=== PATIENT | female | born 1970 | race Caucasian/White ===

== ENCOUNTER 2016-11-26 05:50 | Emergency (ER) | payer BC, OTHER ==
[~2016-11-26] VITALS: Ht 157.5 cm; Wt 79.1 kg
[~2016-11-26 05:50] MED LIST: ZFRODT4 SL
[2016-11-26 05:52] VITALS: TEMP 36.7; Ht 157.5 cm; Wt 79.1 kg
[2016-11-26] MEDS ORDERED: CITA20TA4 PO (06:36)
[2016-11-26] MEDS ORDERED: LEVO25TA5 PO (06:36)
[2016-11-26] MEDS ORDERED: MECLIZINE HCL 25 MG TAB PO STA (07:05)
[2016-11-26 07:34] LABS: BASO % 0.1 %; BASO ABS # 0.01 K/uL (0-0.2); COMPLETE YES; EOS % 1.4 %; HEMATOCRIT 47.1 % (37-47); IG% 0.1 %; LYMPH % 27.6 %; LYMPH ABS # 1.92 K/uL (1.2-3.4); MEAN CELL VOLUME 94.2 fL (80-100); MEAN CORPUSCULAR HEMOGLOBIN 31.4 pg (25-34); MEAN CORPUSCULAR HGB CONC 33.3 g/dl (32-36); MEAN PLATELET VOLUME 9.3 fL (7.4-10.4); MONO % 4.9 %; NEUT % 65.9 %; PLATELET COUNT 307 K/uL (130-400); WHITE BLOOD COUNT 6.95 K/uL (4.8-10.8)
[2016-11-26 07:53] LABS: BUN/CREATININE RATIO 14.4 (10-20); CALCIUM 8.8 mg/dl (8.5-10.1); CREATININE 0.95 mg/dl (0.60-1.20); POTASSIUM 4.3 mmol/L (3.5-5.1)
--- NOTE | 2016-11-26 07:56 | DIAGNOSTIC IMAGING REPORT ---
HEAD WITHOUT CONTRAST (CT) CT DOSE: 537.48 mGy.cm HISTORY: Mental status change dizzy TECHNIQUE: Multiaxial CT images of the head were performed without the use of intravenous contrast. A dose lowering technique was utilized adhering to the principles of ALARA. Comparison: None. Findings: Mild mucosal thickening left mastoid air cells. The calvarium and skull base are intact. The ventricles and sulci are within normal limits. There is no mass, hematoma, midline shift, or acute infarct. Impression: No acute intracranial abnormality. Mild mucosal thickening left mastoid air cells The above report was generated using voice recognition software. It may contain grammatical, syntax or spelling errors. Electronically signed by: Neto Finn M.D. 11/26/2016 7:55 AM Dictated Date/Time: 11/26/2016 7:54 AM
--- NOTE | 2016-11-26 08:04 | EMERGENCY ROOM VISIT NOTE ---
History Report prepared by Mini: Eli Weber Under the Supervision of: Dr. Chris Alba M.D. First contact with patient: 07:01 Chief Complaint: DIZZY Stated Complaint: DIZZY Nursing Triage Summary: pt states she ruptured her left ear drum about a week and half ago while coughing, last evening became dizzy and was falling to the left side. denies any other sx's. feels this is vertigo History of Present Illness The patient is a 46 year old female who presents to the Emergency Room with complaints of intermittent dizziness since last night. The patient has had cold symptoms for the past week and a half. She is currently taking amoxicillin. She was coughing about a week ago and reports that her ear popped, and ever since then she feels like she is underwater. Yesterday the patient developed dizziness and nausea. When she would stand up, she noticed that she was leaning toward her left. She went to bed and since she woke up this morning her dizziness is worse with movement and changing positions. This has never happened before. The patient denies urinary symptoms, diarrhea, and pain or swelling in her legs. She does not take any blood thinners. Source of History: patient Onset: last night Position: other (global) Quality: other (dizziness) Timing: intermittent Modifying Factors (Worsening): movement, other (changing positions) Modifying Factors (Relieving): rest Associated Symptoms: + nausea, No diarrhea, No urinary symptoms Review of Systems All systems have been listed, reviewed, and are negative other than those previously mentioned. Please see Additional Medical History Sheet. Past Medical & Surgical Medical Problems: (1) No significant active problems Family History Cancer Gallbladder disease Heart disease Hypertension Lung disease Social History Smoking Status: Current Every Day Smoker Smokeless Tobacco Use: No Alcohol Use: none Drug Use: none Marital Status: Housing Status: lives with significant other Occupation Status: employed Current/Historical Medications Scheduled Citalopram Hydrobromide (Citalopram Hydrobromide), 20 MG PO DAILY Levothyroxine Sodium (Levothyroxine Sodium), 1 TAB PO DAILY Pseudoephedrine (Sudafed), 60 MG PO Q6H Scheduled PRN Diazepam (Valium), 5 MG PO Q6 PRN for dizziness Allergies Coded Allergies: No Known Allergies (Unverified , 11/26/16) Physical Exam Vital Signs Date Time Temp Pulse Resp B/P (MAP) Pulse Ox O2 Delivery O2 Flow Rate FiO2 11/26/16 09:01 76 18 105/60 92 Room Air 11/26/16 07:02 82 16 107/70 94 Room Air 11/26/16 05:52 36.7 99 18 125/82 93 Room Air Physical Exam GENERAL: Patient awake, alert, oriented x 3. Patient follows commands. Patient does not appear toxic. Patient is adequately hydrated and well- nourished. SKIN: No erythema, pallor, cyanosis or rash HEENT: Normal head, pupils equal, reactive to light and accommodation, no nystagmus. Cloudy TMs bilaterally with questionable effusion. Oral cavity and posterior pharynx appear normal. Neck: Without adenopathy, no neck vein distention. LUNGS: Clear to auscultation. No wheezes, no rales, no rhonchi. HEART: No murmurs. No gallops. No rubs ABDOMEN: No masses, no rebound, no hepatomegaly or splenomegaly. EXTREMITIES: No signs of trauma. No pedal or pretibial edema. No calf or thigh tenderness. NEUROLOGIC: Cranial nerves II-XII within normal limits. No gross motor sensory function deficits. Medical Decision & Procedures ER Provider Diagnostic Interpretation: Radiology results as stated below per my review and radiologist interpretation: HEAD WITHOUT CONTRAST (CT) CT DOSE: 537.48 mGy.cm HISTORY: Mental status change dizzy TECHNIQUE: Multiaxial CT images of the head were performed without the use of intravenous contrast. A dose lowering technique was utilized adhering to the principles of ALARA. Comparison: None. Findings: Mild mucosal thickening left mastoid air cells. The calvarium and skull base are intact. The ventricles and sulci are within normal limits. There is no mass, hematoma, midline shift, or acute infarct. Impression: No acute intracranial abnormality. Mild mucosal thickening left mastoid air cells The above report was generated using voice recognition software. It may contain grammatical, syntax or spelling errors. Electronically signed by: Neto Finn M.D. 11/26/2016 7:55 AM Dictated Date/Time: 11/26/2016 7:54 AM Laboratory Results 11/26/16 07:20 Red Blood Count 5.00, Mean Corpuscular Volume 94.2, Mean Corpuscular Hemoglobin 31.4, Mean Corpuscular Hemoglobin Concent 33.3, Mean Platelet Volume 9.3, Neutrophils (%) (Auto) 65.9, Lymphocytes (%) (Auto) 27.6, Monocytes (%) (Auto) 4.9, Eosinophils (%) (Auto) 1.4, Basophils (%) (Auto) 0.1, Neutrophils # (Auto) 4.57, Lymphocytes # (Auto) 1.92, Monocytes # (Auto) 0.34, Eosinophils # (Auto) 0.10, Basophils # (Auto) 0.01 11/26/16 07:20 Test 11/26/16 07:20 White Blood Count 6.95 K/uL (4.8-10.8) Red Blood Count 5.00 M/uL (4.2-5.4) Hemoglobin 15.7 g/dL (12.0-16.0) Hematocrit 47.1 % (37-47) Mean Corpuscular Volume 94.2 fL (80-100) Mean Corpuscular Hemoglobin 31.4 pg (25-34) Mean Corpuscular Hemoglobin Concent 33.3 g/dl (32-36) Platelet Count 307 K/uL (130-400) Mean Platelet Volume 9.3 fL (7.4-10.4) Neutrophils (%) (Auto) 65.9 % Lymphocytes (%) (Auto) 27.6 % Monocytes (%) (Auto) 4.9 % Eosinophils (%) (Auto) 1.4 % Basophils (%) (Auto) 0.1 % Neutrophils # (Auto) 4.57 K/uL (1.4-6.5) Lymphocytes # (Auto) 1.92 K/uL (1.2-3.4) Monocytes # (Auto) 0.34 K/uL (0.11-0.59) Eosinophils # (Auto) 0.10 K/uL (0-0.5) Basophils # (Auto) 0.01 K/uL (0-0.2) RDW Standard Deviation 44.3 fL (36.4-46.3) RDW Coefficient of Variation 12.8 % (11.5-14.5) Immature Granulocyte % (Auto) 0.1 % Immature Granulocyte # (Auto) 0.01 K/uL (0.00-0.02) Anion Gap 5.0 mmol/L (3-11) Est Creatinine Clear Calc Drug Dose 70.6 ml/min Estimated GFR () 82.1 Estimated GFR (Non- 70.8 BUN/Creatinine Ratio 14.4 (10-20) Calcium Level 8.8 mg/dl (8.5-10.1) Total Bilirubin 0.4 mg/dl (0.2-1) Aspartate Amino Transf (AST/SGOT) 21 U/L (15-37) Alanine Aminotransferase (ALT/SGPT) 32 U/L (12-78) Alkaline Phosphatase 93 U/L (45-117) Total Protein 6.7 gm/dl (6.4-8.2) Albumin 3.4 gm/dl (3.4-5.0) Globulin 3.3 gm/dl (2.5-4.0) Albumin/Globulin Ratio 1.0 (0.9-2) Laboratory results as stated above per my review. Medications Administered Medications (Trade) Dose Ordered Sig/Nida Route Start Time Stop Time Status Last Admin Dose Admin Meclizine HCl (Antivert Tab) 25 mg NOW STAT PO 11/26/16 07:05 11/26/16 07:07 DC 11/26/16 07:12 25 MG Procedure Hallpike testing negative. ED Course 0701: Past medical records reviewed. The patient was evaluated in room A11B. A complete history and physical examination was performed. 0705: Meclizine HCl 25 mg PO 0829: I reassessed the patient at this time. Hallpike testing was negative. I discussed the results and treatment plan with the patient. I discussed options for the patient regarding medications. I answered all pertaining questions that she had. She expressed understanding and verbalized agreement. The patient will be discharged home. Medical Decision Differential diagnoses includes benign positional vertigo, CVA, labyrinthitis, electrolyte or metabolic abnormality, vestibular neuronitis, otitis media, neoplasm. Multiple labs and imaging were obtained. Please see above. The patient has no evidence of pathology on her CT scan. The patient does have signs of some otitis. She has been on antibiotics for at least a week. Most likely this is of viral etiology. [place] testing was negative. The patient will be placed on Sudafed and Valium. [place] Drug Monitoring Program Search Results: patient reviewed within database, no issues identified Medication Reconcilliation Current Medication List: was personally reviewed by me Blood Pressure Screening Patient's blood pressure: Normal blood pressure Impression Primary Impression: Vestibular neuronitis Scribe Attestation The scribe's documentation has been prepared under my direction and personally reviewed by me in its entirety. I confirm that the note above accurately reflects all work, treatment, procedures, and medical decision making performed by me. Departure Information Dispostion Home / Self-Care Prescriptions Pseudoephedrine (Sudafed) 30 Mg Tab 60 MG PO Q6H, #20 TAB Prov: Chris Alba M.D. 11/26/16 Diazepam (VALIUM) 5 Mg Tab 5 MG PO Q6 Y for dizziness, #10 TAB Prov: Chris Alba M.D. 11/26/16 Referrals Kristine Gary M.D. (MEDICAL) (PCP) Forms HOME CARE DOCUMENTATION FORM, IMPORTANT VISIT INFORMATION Patient Instructions Balance System Inner Ear, [facility] Additional Instructions 60 mg of Sudafed every 6 hours until symptoms have resolved. One Valium every 6 hours as needed for dizziness. Do not drive or operate machinery while taking Valium. Follow-up with your family physician within the next 3-4 days if symptoms have not resolved. Problem Qualifiers Primary Impression: Vestibular neuronitis
[2016-11-26] MEDS ORDERED: DIAZ5TAB3 PO (08:42)
[2016-11-26] MEDS ORDERED: PSEU30TA20 PO (08:42)
[2016-11-26 09:01] VITALS: BP 105/60; PULSE 76; O2SAT 92
== END 2016-11-26 09:02 | disposition home or self-care (01) ==
LOC: C.EDB 05:51 → C.EDA 09:02
DX: H81.20 Vestibular neuronitis, unspecified ear (principal); F17.210 Nicotine dependence, cigarettes, uncomplicated; Z79.899 Other long term (current) drug therapy